=== PATIENT | female | born 1950 | race Caucasian/White ===

== ENCOUNTER 2018-11-17 15:54 | Emergency (ER) | payer MEDICARE ==
[~2018-11-17] VITALS: Ht 165.1 cm; Wt 61.8 kg
[2018-11-17 16:06] VITALS: Ht 165.1 cm; Wt 61.8 kg
[2018-11-17] MEDS ORDERED: LIPITOR20 MG PO (16:09)
[2018-11-17] MEDS ORDERED: TOPROL XL50 MG PO (16:09)
[2018-11-17] MEDS ORDERED: TRIAMTERENE-HC1 EAC3 PO (16:10)
[2018-11-17] MEDS ORDERED: XANAX0.25 MG PO (16:10)
[2018-11-17 16:42] LABS: HEMATOCRIT 38.6 % (36.0-48.0); HEMOGLOBIN 13.7 g/dL (12-16); LYMPHOCYTES 23.4 % (15-50); MCH 33.1 pg (26.0-34.0); MCHC 35.5 g/dL (31.0-37.0); MCV 93.2 fL (80.0-100.0); MEAN PLATELET VOLUME 10.9 fL (7.4-10.4); NEUTROPHILS 68.5 % (40-80); PLATELET COUNT 139 10x3/uL (130-400); RBC 4.14 10x6/uL (4.00-5.40); RDW 11.9 % (11.5-14.5)
[2018-11-17 16:44] LABS: INR 1.11 (0.85-1.17); PROTIME 13.8 SECONDS (11.6-15.0)
[2018-11-17 16:50] LABS: ALBUMIN 3.6 g/dL (3.4-5.0); ALKALINE PHOSPHATASE 124 U/L (46-116); ALT (SGPT) 19 U/L (10-68); BILIRUBIN - TOTAL 0.54 mg/dL (0.2-1.3); CALC OSMOLALITY 280 mosm/kg (275-300); CALCIUM 9.1 mg/dL (8.5-10.1); CARBON DIOXIDE 27.3 mmol/L (21.0-32.0); CHLORIDE - SERUM 103 mmol/L (98-107); CREATININE - SERUM 1.1 mg/dL (0.6-1.3); GLUCOSE 94 mg/dL (74-106); POTASSIUM - SERUM 3.9 mmol/L (3.5-5.1); PROTEIN - SERUM 7.3 g/dL (6.4-8.2); SODIUM 140 mmol/L (136-145); UREA NITROGEN 18 mg/dL (7-18); eGFR NON AFRICAN AMERICAN 52 mL/min (90-120)
[2018-11-17 17:01] LABS: CREATINE KINASE 72 UL (21-215); MAGNESIUM - SERUM 1.9 mg/dL (1.8-2.4)
[2018-11-17 17:04] LABS: TROPONIN-I < 0.017 ng/mL (0.000-0.060)
[2018-11-17 19:17] LABS: APPEARANCE HAZY (CLEAR); BACTERIA MANY /hpf (NONE SEEN); BILIRUBIN NEGATIVE (NEGATIVE); COLOR YELLOW (YELLOW); EPITHELIAL CELLS 0-5 /hpf (0-5); GLUCOSE NEGATIVE (NEGATIVE); KETONE NEGATIVE (NEGATIVE); NITRITE NEGATIVE (NEGATIVE); PROTEIN NEGATIVE (NEGATIVE); UROBILINOGEN NORMAL (NORMAL)
[2018-11-17] MEDS ORDERED: LEVAQUIN750 MG PO (19:57)
[2018-11-17 21:00] VITALS: BP 144/78
== END 2018-11-17 21:00 | disposition home or self-care (01) ==
LOC: D.ER 15:54
PROVIDERS: Emergency Medicine
DX: N39.0 Urinary tract infection, site not specified (principal); E86.0 Dehydration; R55 Syncope and collapse